=== PATIENT | male | born 1970 | race Asian ===

== ENCOUNTER 2018-03-18 05:21 | Emergency (ER) | payer MEDICARE, OTHER ==
[~2018-03-18] VITALS: Ht 167.6 cm; Wt 83.6 kg
[2018-03-18] MEDS ORDERED: RISP1 PO (05:30)
[2018-03-18] MEDS ORDERED: SIMV20TA6 PO (05:30)
[2018-03-18] MEDS ORDERED: CARB200T6 PO (05:30)
[2018-03-18] MEDS ORDERED: ATEN50TA PO (05:30)
[2018-03-18] MEDS ORDERED: METF-960 PO (05:30)
[2018-03-18] MEDS ORDERED: CHLO200T10 PO (05:30)
[2018-03-18 05:35] LABS: GLUCOSE,POINT OF CARE 170 MG/DL (70-110)
[2018-03-18] MEDS ORDERED: IBUPROFEN 600 MG TABLET PO ONE (08:30)
[2018-03-18 10:39] VITALS: BP 116/76
== END 2018-03-18 10:42 | disposition home or self-care (01) ==
LOC: EMS 05:23
DX: R07.89 Other chest pain (principal); E11.9 Type 2 diabetes mellitus without complications; E78.00 Pure hypercholesterolemia, unspecified; I10 Essential (primary) hypertension; Z79.84 Long term (current) use of oral hypoglycemic drugs; Z79.899 Other long term (current) drug therapy
CPT/HCPCS: 93005